=== PATIENT | female | born 1975 | race Caucasian/White ===

== ENCOUNTER 2018-05-24 02:48 | Emergency (ER) | payer BC ==
[2018-05-24] MEDS ORDERED: Ondansetron ODT 4 MG TAB ONE (03:04)
[2018-05-24] MEDS ORDERED: Aspirin Chewable 81 MG TAB ONE (03:04)
[2018-05-24 03:23] LABS: ALT (SGPT) 11 U/L (8-55); AST (SGOT) 20 U/L (5-34); Albumin 4.5 g/dL (3.5-5.0); Alkaline Phosphatase 94 U/L (40-150); Anion Gap 14 mmol/L (10-20); BUN (Urea Nitrogen) 9 mg/dL (7.0-18.7); Bilirubin, Total 0.4 mg/dL (0.2-1.2); CK (CPK) 75 U/L (29-168); Calc. Creatinine Clearance 0 mL/min (70-130); Calcium 9.8 mg/dL (7.8-10.44); Carbon Dioxide 23 mmol/L (22-29); Chloride 107 mmol/L (98-107); Estimated GFR-MDRD 81; Globulin 2.6 g/dL (2.4-3.5); Glucose 99 mg/dL (70-105); Potassium 4.3 mmol/L (3.5-5.1); Protein, Total 7.1 g/dL (6.0-8.3); Sodium 140 mmol/L (136-145)
[2018-05-24 03:26] LABS: Eosinophils 6 % (0-10); Lymphocytes 39 % (21-51); MDiff Complete? YES; Mean Corpuscular HGB CONC 34.8 g/dL (32.0-36.0); Mean Corpuscular Volume 94.8 fL (78.0-98.0); Mean Platelet Volume 8.7 fL (7.4-10.4); Monocytes 6 % (0-10); Neutrophil 39 % (42-75); Platelet Count 228 thou/uL (130-400); RBC Distribution Width 11.5 % (11.5-14.5); Reactive Lymphocytes 10 % (0-10); Red Blood Cell (RBC) Count 4.25 mill/uL (4.20-5.40); White Blood Cell (WBC) Count 7.2 thou/uL (4.8-10.8)
[2018-05-24 03:47] LABS: BHCG - Serum Negative (NEGATIVE); Pregs Control Background? CLEAR/WHITE (CLR/WHITE); Pregs Control Bar Appear? YES (CONTROL BAR)
--- NOTE | 2018-05-24 07:45 | RAD ---
CHEST 1 VIEW: Date: 05/24/18 INDICATION: Tightness and squeezing chest pain. IMPRESSION: Lungs are clear. Heart size is normal. No acute osseous abnormality is noted. No comparisons are avai lable. POS: [facility]
== END 2018-05-24 03:45 | disposition home or self-care (01) ==
LOC: SCSER 02:48
DX: R07.9 Chest pain, unspecified (principal)
CPT/HCPCS: 71045; 80053; 82550; 84484; 84703; 85025; 93005; Q0162

== ENCOUNTER 2023-11-28 11:08 | Outpatient (CLI) | payer BC | END 2023-11-28 11:09 | disposition home or self-care (01) | LOC: SCSRAD 11:08 | PROVIDERS: ATTEND Nurse Practitioner Family | DX: R10.11 Right upper quadrant pain (principal) | CPT/HCPCS: 74018 ==

== ENCOUNTER 2024-03-19 14:34 | Outpatient (CLI) | payer BC | END 2024-03-19 14:35 | disposition home or self-care (01) | LOC: BICMAMMO 14:34 | PROVIDERS: ATTEND Family Medicine Sports Medicine | DX: N63.20 Unspecified lump in the left breast, unspecified quadrant (principal) | CPT/HCPCS: 77066; G0279 ==